=== PATIENT | male | born 1955 | race Caucasian/White ===

== ENCOUNTER 2021-09-07 13:41 | Outpatient (CLI) | payer MEDICARE, SELFPAY ==
--- NOTE | 2021-09-07 14:08 | USCV_ITS ---
Romero Vines Age: 66 Gender: M : 1955 Exam Date: 09/07/2021 14:56 Ordering Phys: Sneha Degroot NP Technologist: Andrew Domínguez Exam Location: [facility] – [place] Indication: bruit Risk Factors: Previous Vascular Surgery: Right Brachial BP: / Left Brachial BP: / Right Left Velocity (cm/s) Spectral Plaque Velocity (cm/s) Spectral Plaque Syst/Diast Broadening Syst/Diast Broadening 115.80/22.10 Prox CCA 118.00/ 24.30 98.10/ 24.30 Mid CCA 99.20 / 25.40 73.00/ 17.90 Distal CCA 83.30 / 18.80 48.60/ 18.40 Prox ICA 73.80 / 14.00 79.20/ 24.90 Mid ICA 103.40/ 39.30 77.70/ 26.40 Distal ICA 106.80/ 37.60 80.00 ECA 104.70 0.68 ICA/CCA 0.91 Antegrade Vertebral Antegrade 52.00/ 17.10 cm/s 42.10/ 8.50 cm/s Tri Subclavian Tri 108.5 96.60 0 CONCLUSIONS Right ICA stenosis <50%. Mild atheromatous plaque right carotid bulb/ICA. Left ICA stenosis <50%. Mild atheromatous plaque left carotid bulb/ICA. Normal antegrade Doppler flow noted in the right vertebral artery. Normal antegrade Doppler flow noted in the left vertebral artery. Kp Santoro MD (Electronically Signed) Final Date: 10 September 2021 14:02 S
== END 2021-09-07 13:42 | disposition home or self-care (01) ==
PROVIDERS: Visit Provider Nurse Practitioner Family
DX: R09.89 Other specified symptoms and signs involving the circulatory and respiratory systems (principal)
CPT/HCPCS: 93880